=== PATIENT | female | born 1980 | race Two or more races ===

== ENCOUNTER → 2018-06-20 | Outpatient (CLI) | payer OTHER ==
--- NOTE | 2018-06-21 07:03 | MM ---
Reason for exam: screening (asymptomatic). Baseline mammogram. History: Family history of breast cancer in maternal grandmother. Physical Findings: Nurse did not find any significant physical abnormalities on exam. MG Screening Mammo w CAD Bilateral CC and MLO view(s) were taken. The breast tissue is heterogeneously dense. This may lower the sensitivity of mammography. No suspicious abnormality. These results were verbally communicated with the patient and result sheet given to the patient on 06/20/18. ASSESSMENT: Negative, BI-RAD 1 RECOMMENDATION: Routine screening mammogram of both breasts in 1 year.
== END | disposition home or self-care (01) ==
LOC: RADMAMWWP 15:12
PROVIDERS: ATTEND Family Medicine
DX: Z12.31 Encounter for screening mammogram for malignant neoplasm of breast (principal); N64.89 Other specified disorders of breast; Z80.3 Family history of malignant neoplasm of breast
CPT/HCPCS: 77067

== ENCOUNTER → 2018-06-30 | Outpatient (CLI) | payer OTHER ==
--- NOTE | 2018-06-30 12:51 | US ---
EXAMINATION TYPE: US thyroid st tissue head/neck DATE OF EXAM: 06/30/2018 COMPARISON: NONE CLINICAL HISTORY: E03.9 Hypothyroidism. Persistent cough, neck swelling, on thyroid meds GLAND SIZE: Right Lobe: 4.4 x 1.3 x 1.6 cm Overall Parenchyma: homogenous Left Lobe: 4.2 x 1.3 x 1.3 cm Overall Parenchyma: homogeneous Isthmus Thickness: 0.2 cm NODULES RIGHT: # of nodules measured on right: 0 LEFT: # of nodules measured on left: 0 ISTHMUS: # of nodules measured in the isthmus: 0 Bilateral neck scanned, no evidence of lymphadenopathy. IMPRESSION: No distinct abnormality appreciated.
== END | disposition home or self-care (01) ==
LOC: RADUSWWP 12:17
PROVIDERS: ATTEND Family Medicine
DX: E03.9 Hypothyroidism, unspecified (principal)
CPT/HCPCS: 76536

== ENCOUNTER 2022-08-31 06:50 | Inpatient (IN) | payer BC, OTHER ==
[2022-08-31] MEDS ORDERED: ASPIRIN 81 MG PO STA (07:17)
[2022-08-31] MEDS ORDERED: SODIUM CHLORIDE 0.9% 500 ML 500 ML IV STA (07:17)
[2022-08-31] MEDS ORDERED: SODIUM CHLORIDE 0.9% 1,000 ML IV STA (07:17)
[2022-08-31] MEDS ORDERED: KETOROLAC 15 MG/ML 1 ML VIAL IVP STA (07:18)
[2022-08-31 08:07] LABS: Basophils % (A) 0 %; Eosinophils # (A) 0.1 k/uL (0-0.7); Eosinophils % (A) 1 %; HCT 40.8 % (34.0-46.0); HGB 13.9 gm/dL (11.4-16.0); Lymphocytes # (A) 0.4 k/uL (1.0-4.8); Lymphocytes % (A) 6 %; MCH 28.6 pg (25.0-35.0); MCHC 34.1 g/dL (31.0-37.0); Mean Platelet Volume 6.7; Monocytes # (A) 0.3 k/uL (0-1.0); Monocytes % (A) 5 %; Neutrophils # (A) 5.5 k/uL (1.3-7.7); Neutrophils % (A) 87 %; Platelet Count 285 k/uL (150-450); RBC 4.86 m/uL (3.80-5.40); RDW 13.4 % (11.5-15.5); WBC 6.3 k/uL (3.8-10.6)
[2022-08-31 08:16] LABS: ALT 18 U/L (4-34); AST 25 U/L (14-36); African American GFR (CKD) >90 (>60 ml/min/1.73 sqM); Albumin 4.3 g/dL (3.5-5.0); Alkaline Phosphatase 50 U/L (38-126); Anion Gap 6 mmol/L; Blood Urea Nitrogen 14 mg/dL (7-17); Calcium 8.8 mg/dL (8.4-10.2); Carbon Dioxide 26 mmol/L (22-30); Chloride 105 mmol/L (98-107); Glucose 108 mg/dL (74-99); Lipase 50 U/L (23-300); Magnesium 1.5 mg/dL (1.6-2.3); Non-African American GFR(CKD) >90 (>60 ml/min/1.73 sqM); Potassium 3.8 mmol/L (3.5-5.1); Sodium 137 mmol/L (137-145); Total Bilirubin 0.6 mg/dL (0.2-1.3); Total Protein 7.2 g/dL (6.3-8.2)
[2022-08-31 08:33] LABS: Partial Thromboplastin Time 25.6 sec (22.0-30.0); Prothrombin Time 10.5 sec (9.0-12.0)
--- NOTE | 2022-08-31 08:33 | XR ---
EXAMINATION TYPE: XR chest 2V DATE OF EXAM: 08/31/2022 8:29 AM COMPARISON: None TECHNIQUE: XR chest 2V Frontal and lateral views of the chest. CLINICAL INDICATION:Female, 42 years old with history of Chest Pain; FINDINGS: Lungs/Pleura: There is no evidence of pleural effusion, focal consolidation, or pneumothorax. Pulmonary vascularity: Unremarkable. Heart/mediastinum: Cardiomediastinal silhouette is unremarkable. Musculoskeletal: No acute osseous pathology. IMPRESSION: No acute cardiopulmonary disease/process.
--- NOTE | 2022-08-31 08:59 | ED ---
Chest Pain HPI - General Chief Complaint: Chest Pain Stated Complaint: chest pain Time Seen by Provider: 08/31/22 06:57 Source: patient, EMS, RN notes reviewed Mode of arrival: EMS Limitations: no limitations - History of Present Illness Initial Comments: This a 42-year-old female presents emergency department via EMS chief complaint of cough and cold-like symptoms, chest pain. Patient states she is currently staying in a hotel as she did not want to her family member sick she was exposed to influenza. Patient states when she developed chest pain several hours prior arrival. Patient states that her stated deep breath states is sharp central chest pain when she pressed over her chest and her. Patient denies any abdominal complaints states that she does have cough, congested and reported fever. Patient has no severe past medical history including hypertension, hyperlipidemia, diabetes no prior cardiac disease no prior lung disease. Denies numbness smoker - Related Data Allergies Allergy/AdvReac Type Severity Reaction Status Date / Time No Known Allergies Allergy Verified 08/31/22 07:03 Review of Systems ROS Statement: Those systems with pertinent positive or pertinent negative responses have been documented in the HPI. ROS Other: All systems not noted in ROS Statement are negative. EKG Findings - EKG Comments: EKG Findings:: EKG performed at 7:29 sinus rhythm rate of 92 CT 141/86 QT/QTC 342/393 - EKG Results: EKG: interpreted by KELLY Past Medical History Past Medical History: No Reported History History of Any Multi-Drug Resistant Organisms: None Reported Past Surgical History: Section, Tubal Ligation, Uterine Ablation Past Psychological History: No Psychological Hx Reported Smoking Status: Former smoker Past Alcohol Use History: Rare Past Drug Use History: None Reported General Exam Limitations: no limitations General appearance: alert, in no apparent distress Head exam: Present: atraumatic, normocephalic, normal inspection Eye exam: Present: normal appearance, PERRL, EOMI. Absent: scleral icterus, conjunctival injection, periorbital swelling ENT exam: Present: normal exam, normal oropharynx, mucous membranes moist Neck exam: Present: normal inspection, full ROM. Absent: tenderness, meningismus, lymphadenopathy Respiratory exam: Present: normal lung sounds bilaterally, chest wall tenderness. Absent: respiratory distress, wheezes, rales, rhonchi, stridor Cardiovascular Exam: Present: regular rate, normal rhythm, normal heart sounds. Absent: systolic murmur, diastolic murmur, rubs, gallop, clicks GI/Abdominal exam: Present: soft, normal bowel sounds. Absent: distended, tenderness, guarding, rebound, rigid Course Vital Signs 08/31/22 08/31/22 08/31/22 07:03 07:36 08:00 Temperature 98.6 F Pulse Rate 88 96 93 Respiratory 15 16 21 Rate Blood Pressure 98/71 94/71 94/61 O2 Sat by Pulse 100 100 100 Oximetry 08/31/22 08/31/22 08/31/22 08:30 09:00 09:30 Temperature Pulse Rate 74 65 80 Respiratory 18 19 18 Rate Blood Pressure 96/58 84/58 85/55 O2 Sat by Pulse 99 100 100 Oximetry 08/31/22 09:38 Temperature Pulse Rate 79 Respiratory 18 Rate Blood Pressure 87/54 O2 Sat by Pulse 99 Oximetry Chest Pain MDM - MDM Was pt. sent in by a medical professional or institution (, PA, BRINE PROCESS OPERATOR, urgent care, hospital, or half-way...) When possible be specific @ -[No] Did you speak to anyone other than the patient for history (EMS, parent, family, police, friend...)? What history was obtained from this source @ -[EMS provided prehospital care, treatment medications. Did you review nursing and triage notes (agree or disagree)? Why? @ -[I reviewed and agree with nursing and triage notes] Were old charts reviewed (outside hosp., previous admission, EMS record, old EKG, old radiological studies, urgent care reports/EKG's, half-way records)? Report findings @ -[No old charts were reviewed] Differential Diagnosis (chest pain, altered mental status, abdominal pain women, abdominal pain men, vaginal bleeding, weakness, fever, dyspnea, syncope, headache, dizziness, GI bleed, back pain, seizure, CVA, palpatations, mental health)? @ -[Chest pain atypical chest pain, chest wall pain, influenza,: 19, pneumonia, pneumothorax, PE, this list is not all inclusive.] EKG interpreted by me (3pts min.). @ -[As above] X-rays interpreted by me (1pt min.). @ -[Chest x-ray shows no acute process.] CT interpreted by me (1pt min.). @ -[CT chest PE study shows no evidence of PE, there is a noted nodule] U/S interpreted by me (1pt. min.). @ -[None done] What testing was considered but not performed or refused? (CT, X-rays, U/S, labs)? Why? @ -[None] What meds were considered but not given or refused? Why? @ -[None] Did you discuss the management of the patient with other professionals (professionals i.e. , PA, BRINE PROCESS OPERATOR, lab, RT, psych nurse, social worker clinical, assistant golf coach, teacher, medical officer, rn case management)? Give summary @ -[Admitting hospitalist with consult cardiology, echocardiogram] Was smoking cessation discussed for >3mins.? @ -[No] Was critical care preformed (if so, how long)? @ -[No] Were there social determinants of health that impacted care today? How? (Homelessness, low income, unemployed, alcoholism, drug addiction, transportation, low edu. Level, literacy, decrease access to med. care, correction, rehab)? @ -[No] Was there de-escalation of care discussed even if they declined (Discuss DNR or withdrawal of care, Hospice)? DNR status @ -[No] What co-morbidities impacted this encounter? (DM, HTN, Smoking, COPD, CAD, Cancer, CVA, ARF, Chemo, Hep., AIDS, mental health diagnosis, sleep apnea, morbid obesity)? @ -[None] Was patient admitted / discharged? Hospital course, mention meds given and route, prescriptions, significant lab abnormalities, going to OR and other pertinent info. @ -[hospital course] Undiagnosed new problem with uncertain prognosis? @ -[No] Drug Therapy requiring intensive monitoring for toxicity (Heparin, Nitro, Insulin, Cardizem)? @ -[No] Were any procedures done? @ -[No] Diagnosis/symptom? @ -[Chest pain] Acute, or Chronic, or Acute on Chronic? @ -[Acute] Uncomplicated (without systemic symptoms) or Complicated (systemic symptoms)? @ -[Uncomplicated] Side effects of treatment? @ -[No] Exacerbation, Progression, or Severe Exacerbation? @ -[No] Poses a threat to life or bodily function? How? (Chest pain, [place], [place], pneumonia, PE, COPD, DKA, ARF, appy, cholecystitis, CVA, Diverticulitis, Homicidal, Suicidal, threat to staff... and all critical care pts) @ -[Chest pain, patient has risk of cardiac arrest.] Disposition Clinical Impression: Chest pain Disposition: ADMITTED IP TO THIS HOSP Condition: Fair Referrals: Azar Kenyon DO [Primary Care Provider] - 1-2 days Time of Disposition: 09:55
--- NOTE | 2022-08-31 09:30 | CT ---
EXAMINATION TYPE: CT chest angio for PE CT DLP: 258.5 mGycm, Automated exposure control for dose reduction was used. DATE OF EXAM: 08/31/2022 9:21 AM COMPARISON: Chest radiograph from same day. CLINICAL INDICATION:Female, 42 years old with history of pain, sob; Pain, SOB, PE TECHNIQUE/CONTRAST: CTA scan of the thorax is performed without and with IV Contrast, patient injected with 100 ml mL of Isovue 370, pulmonary embolism protocol. MIP images are created and reviewed. FINDINGS: Pulmonary Artery: There is no evidence for a filling defect within the pulmonary vasculature to sugge st acute pulmonary embolism. The pulmonary artery is of normal size. Lungs/Pleura: No evidence of focal consolidation, pleural effusion or pneumothorax. Minimal bilateral posterior lower lobe subsegmental atelectasis. Airway: Large airways are patent. Heart: Heart is within normal limits for size.. Vasculature: No evidence of aortic aneurysm. Mediastinum: No gross evidence of adenopathy. Left paraesophageal 1.8 x 1.5 cm round lesion (series 1 01, image 36). Musculoskeletal: No acute osseous abnormalities Soft Tissues: Unremarkable. Lower neck: No significant findings. Upper Abdomen: No significant findings. IMPRESSION: 1. No evidence of pulmonary embolism or acute thoracic process. 2. Left paraesophageal 1.8 cm round lesion. 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 C onsider follow-up examination in 6 months to assess for stability.
[2022-08-31] MEDS ORDERED: SODIUM CHLORIDE 0.9% 1,000 ML IV ONE ×2 (09:49→11:53)
[2022-08-31] MEDS ORDERED: MAGNESIUM OXIDE 400 MG TAB PO STA (09:59)
[2022-08-31 11:51] LABS: Glucose,Whole Blood 84 mg/dL (70-110)
--- NOTE | 2022-08-31 11:56 | P.HPIM ---
History of Present Illness This is a pleasant 42 years old female with no significant past medical history Presents because of chest pain this morning was about 10/10, central going to the back, currently improved 2/10, felt like dull pain. associated with all numbness feeling clammy Patient denies coughing or dyspnea No vomiting diarrhea or recent abdominal pain however patient was complaining of from lower abdominal pain and tenderness since last May. She feels very fatigued, her legs are restless. She denies any urinary symptoms like dysuria urgency or change in frequency, she feels dizzy and lightheadedness but no headache weakness or numbness. She feels generally weak. She denies smoking alcohol and illicit drugs Usually her systolic blood pressure is around 100, currently 85-90. Patient says that last May she has History of removal of fallopian tubes for sterilization purposes. Ovaries and part of the transverse left. Vitals are stable. Blood pressure on the low side, 85/55 and 88/56 Patient has unremarkable CBC, INR, BMP and liver enzymes. Troponin is negative. elevated 0.92. Magnesium level I.5. Influenza and covid virsus are undetected EKG showing normal sinus rhythm at [address]-T changes CTA of the chest: No PE, left paraesophageal digital 1.8 cm round lesion. The presents of benign a process such as a duplication cyst. Consider follow-up exam in 6 months to assess She was started on aspirin Review of Systems Review of systems CONSTITUTIONAL: No fever, no hot flashes HEENT: No recent visual problems or hearing problems. Denied any sore throat. CARDIOVASCULAR: No orthopnea, PND, no palpitations, no syncope. PULMONARY: No shortness of breath, no cough, no hemoptysis. GASTROINTESTINAL: No diarrhea, no nausea, no vomiting. Normoactive bowel sounds. NEUROLOGICAL: No headaches, no weakness, no numbness. HEMATOLOGICAL: Denies any bleeding or petechiae. GENITOURINARY: Denies any burning micturition, frequency, or urgency. MUSCULOSKELETAL/RHEUMATOLOGICAL: Denies any joint pain, swelling, or any muscle pain. ENDOCRINE: Denies any polyuria or polydipsia. Past Medical History Past Medical History: No Reported History History of Any Multi-Drug Resistant Organisms: None Reported Past Surgical History: Section, Tubal Ligation, Uterine Ablation Past Psychological History: No Psychological Hx Reported Smoking Status: Former smoker Past Alcohol Use History: Rare Past Drug Use History: None Reported Medications and Allergies Home Medications Medication Instructions Recorded Confirmed Type ALPRAZolam [Xanax] 0.25 mg PO DIRECTED PRN 08/31/22 08/31/22 History Oxybutynin Xl [Ditropan XL] 10 mg PO DAILY 08/31/22 08/31/22 History methocarbamoL [Robaxin] 500 mg PO BID PRN 08/31/22 08/31/22 History Allergies Allergy/AdvReac Type Severity Reaction Status Date / Time No Known Allergies Allergy Verified 08/31/22 10:21 Physical Exam Vitals: Vital Signs Temp Pulse Resp BP Pulse Ox 08/31/22 11:13 67 15 88/56 99 08/31/22 09:38 79 18 87/54 99 08/31/22 09:30 80 18 85/55 100 08/31/22 09:00 65 19 84/58 100 08/31/22 08:30 74 18 96/58 99 08/31/22 08:00 93 21 94/61 100 08/31/22 07:36 96 16 94/71 100 08/31/22 07:03 98.6 F 88 15 98/71 100 Intake and Output 08/30/22 08/31/22 08/31/22 22:59 06:59 14:59 Other: Weight 63.503 kg -GENERAL: The patient is alert and oriented x3, not in any acute distress. Well developed, well nourished. Generally weak with malaise HEENT: Pupils are round and equally reacting to light. EOMI. No scleral icterus. No conjunctival pallor. Normocephalic, atraumatic. No pharyngeal erythema. No thyromegaly. CARDIOVASCULAR: S1 and S2 present. No murmurs, rubs, or gallops. PULMONARY: Chest is clear to auscultation, no wheezing or crackles. -ABDOMEN: Soft, suprapubic tenderness, nondistended, normoactive bowel sounds. No palpable organomegaly. MUSCULOSKELETAL: No joint swelling or deformity. EXTREMITIES: No cyanosis, clubbing, or pedal edema. NEUROLOGICAL: Gross neurological examination did not reveal any focal deficits. SKIN: No rashes. no petechiae. Results CBC & Chem 7: 08/31/22 07:46 08/31/22 07:46 Labs: Abnormal Lab Results - Last 24 Hours (Table) 08/31/22 08/31/22 08/31/22 Range/Units 07:46 07:46 07:46 Lymphocytes # 0.4 L (1.0-4.8) k/uL D-Dimer 0.92 H (<0.60) mg/L FEU Glucose 108 H (74-99) mg/dL Magnesium 1.5 L (1.6-2.3) mg/dL Assessment and Plan Assessment: Chest pain, rule out cardiac causes, CTA was negative for PE Hypotension Suprapubic pain and tenderness, chronic as per patient left paraesophageal digital 1.8 cm round lesion recommended by radiologist to reassess in 6 months History of removal of fallopian tubes Plan: Continue with aspirin Serial troponin Echocardiogram Cardiology consult give normal saline bolus 1 and continue with IV fluid Monitor hemoglobin and vitals Check urinalysis and bladder scan Surgical team consult for abdominal pain Labs and medication were reviewed.. Continue same treatment. Continue with symptomatic treatment. Resume home medication. Monitor labs and vitals. DVT and GI prophylaxis. Further recommendations as per clinical course of the patient DVT prophylaxis: Subcutaneous heparin GI Prophylaxis: Pepcid PT/OT: Pending Prognosis is guarded
[2022-08-31 13:03] LABS: Appearance,Urine Clear (Clear); Bilirubin,Urine Negative (Negative); Blood,Urine Trace (Negative); Color,Urine Yellow; Glucose,Urine (UA) Negative (Negative); Ketones,Urine 2+ (Negative); Leukocyte Esterase,Urine Negative (Negative); Mucus,Urine Rare /hpf; Nitrite,Urine Negative (Negative); Protein,Urine Trace (Negative); RBC,Urine 1 /hpf (0-5); Squamous Epithelial Cell,Urine 2 /hpf (0-4); Urobilinogen,Urine <2.0 mg/dL (<2.0); WBC,Urine 1 /hpf (0-5)
[2022-08-31 13:16] LABS: Specific Gravity,Urine >1.050 (1.001-1.035)
[2022-08-31] MEDS ORDERED: HYDROcodone/APAP 5-325MG 1 EACH TAB PO PRN (13:40)
[2022-08-31] MEDS: SODIUM CHLORIDE 0.9% 1,000 ML IV SCH ×2 (13:42→20:45)
[2022-08-31] MEDS ORDERED: IOPAMIDOL CONTRAST (ORAL USE) VIAL PO PRN (14:51)
--- NOTE | 2022-08-31 15:28 | P.GSCN ---
History of Present Illness Consult date: 08/31/22 History of present illness: CHIEF COMPLAINT: Chest pain Reason for consult lower abdominal pain HISTORY OF PRESENT ILLNESS: This is a 42-year-old female with a past medical history of chronic abdominal pain for the last 6 months. She she complains of lower abdominal pain in the center, suprapubic area at the left lower quadrant. Patient reports that she's been having nausea vomiting and diarrhea. No blood noted in the stools. She had surgery in May with a Dr. Prince Michael who is a landing gear mechanic. At that time she had a fallopian tubes removed and had lysis of adhesions. Patient reports that there were adhesions noted on her bladder as well. Patient has had past surgical history of and tubal ligation. Patient presented to the hospital due to complaints of chest pain that started at 5 AM that radiated up into her shoulder with bilateral arm numbness. She had a CTA which was negative for PE and troponins are negative and EKG is normal sinus rhythm. Cardiology has been consulted. Surgical service consulted in regards to her lower abdominal pain. Patient denies any cardiac history. She has been having urinary frequency and is on Ditropan for overactive bladder. She denies any burning with urination. Patient has been hypotensive and has received IV fluid boluses. PAST MEDICAL HISTORY: See list. PAST SURGICAL HISTORY: See list. MEDICATIONS: See list. ALLERGIES: See list. SOCIAL HISTORY: No illicit drug use. REVIEW OF SYSTEMS: CONSTITUTIONAL: Denies fever or chills. HEENT: Denies blurred vision, vision changes, or eye pain. Denies hemoptysis ENDOCRINE: Denies heat or cold intolerance. CARDIOVASCULAR: Denies chest pain or pressure. RESPIRATORY: No shortness of breath. GASTROINTESTINAL: Please refer to HPI NEURO: Denies history of seizures. PSYCH: No depression or suicidal ideation HEMATOLOGIC: Denies bleeding disorders. LYMPHATIC: The patient denies any lumps and bumps around the neck. GENITOURINARY: Denies any blood in urine or increased urinary frequency. MUSCULOSKELETAL: Denies myalgias. Denies joint swelling. Denies decreased range of motion beyond patients baseline. SKIN: Denies pruitis. Denies rash. PHYSICAL EXAM: VITAL SIGNS: Reviewed GENERAL: Well-developed in no acute distress. HEENT: No sclera icterus. Extraocular movements grossly intact. Moist buccal mucosa. Head is atraumatic, normocephalic. Hears conversational speech. No nasal drainage. NECK: Supple without lymphadenopathy. CHEST: Non-labored respirations and equal bilateral excursions. CARDIOVASCULAR: Palpable 2+ radial pulses. ABDOMEN: Soft. Nondistended. Tenderness to palpation of the lower mid a bdomen, suprapubic area and left lower abdomen MUSCULOSKELETAL: No clubbing or cyanosis. NEUROLOGIC: No focal or lateralizing signs. Cranial nerves II through XII grossly intact. PSYCH: Appropriate affect. Alert and oriented to person, place and time. SKIN: Well perfused. Good skin turgor. LABORATORY DATA: WBC 6.3 Hgb 13.9 platelets 285 INR 1.0 d-dimer 0.92 Sodium 137 potassium 3.8 creatinine 0.69 Magnesium 1.5 troponin negative 2 lipase 50 LFTs normal Urine hCG not detected Influenza, RSV and COVID-19 not detected IMAGING: Chest CTA no evidence of pulmonary embolism or acute thoracic process. Left paraesophageal 1.8 cm round lesion. Represents a benign process such as a cyst. Consider follow-up examination in 6 months to assess stability. ASSESSMENT: 1. Abdominal pain lower mid abdomen, suprapubic area and left lower quadrant 2. Nausea, vomiting and diarrhea 3. Chest pain 4. Left paraesophageal 1.8 cm round lesion. Possible benign cyst on computed tomography scan 5. History of salpingectomy and lysis of adhesions in May with [facility] 6. Hypotensive 7. Hypomagnesemia did receive supplement PLAN: -Computed tomography scan abdomen and pelvis with oral contrast ordered for further evaluation of abdominal pain -Continue IV fluid hydration -Continue supportive -Cardiac workup in progress for chest pain -Further recommendations forthcoming per surgeon Physician Director [employer] note has been reviewed by physician. Signing provider agrees with the documented findings, assessment, and plan of care. REASON FOR CONSULTATION: Atypical chest pain HISTORY OF PRESENT ILLNESS: The patient is a 42 year old female who comes was admitted with atypical chest pain radiating to her back. She reports her pain happened the last 4 hours. Patient reports being exposed to sick contacts including children who had a stomach flu. She reports feeling numbness and tingling throughout her body prior to admission. She felt weak. She presented to the emergency room. Due to her chest pain, cardiac including pulmonary workup was performed. General surgery was consulted due to her atypical chest pain. Patient denies active nausea and vomiting. She denies diffuse abdominal pain. PAST MEDICAL HISTORY: See list and reviewed PAST SURGICAL HISTORY: See list and reviewed MEDICATIONS: See list and reviewed ALLERGIES: See list and reviewed SOCIAL HISTORY: See list and reviewed FAMILY HISTORY: See list and reviewed REVIEW OF ORGAN SYSTEMS: CONSTITUTIONAL: No fevers or chills. No recent weight loss. EYES: Denies any trouble with vision. No glasses. HEENT: No difficulties with hearing. No nosebleeds. No difficulty swallowing. RESPIRATORY: Denies pneumonia. Denies any troubles with breathing or dyspnea on exertion. CARDIOVASCULAR: Denies any chest pain, palpitations, or recent heart attacks. GASTROINTESTINAL: Denies fatty food intolerance. Denies change in bowel habits and gas bloat. GENITOURINARY: Denies any blood in urine or increased urinary frequency. NEUROLOGICAL: Denies any numbness or tingling along the distal extremities. No seizure disorders or headaches. MUSCULOSKELETAL: Denies any back pain, stiffness or joint arthritis. SKIN: No current skin cancer. No rash. Prior abdominoplasty. PSYCHIATRIC: Denies current depression or suicidal thoughts. Has anxiety. ENDOCRINE: Denies current thyroid disorders. Denies any blood sugar glucose intolerance. HEME/LYMPHATIC: Denies any lumps and bumps around the neck. No recent deep venous thrombosis. ALLERGY/IMMUNOLOGY: No immunoglobulin therapy. No immune deficiencies. BREAST: Denies current breast lumps, pain or nipple discharge. PHYSICAL EXAM: VITALS: Reviewed CONSTITUTIONAL: Well developed and in no acute distress. EYES: Conjuctivae without sclera icterus. Extraocular movements grossly intact. HEAD, EARS, NOSE, THROAT: Moist buccal mucosa. Head is atraumatic, normocephalic. Hears conversational speech. No nasal drainage. NECK: Supple. No JV distention. No thyroidomegaly. RESPIRATORY: Non-labored respirations and equal bilateral excursions. No gross wheezes. CARDIOVASCULAR: Palpable 2+ radial pulses. ABDOMEN: Focal tenderness epigastrium. No peritonitis. LYMPH: No neck lymphadenopathy. MUSCULOSKELETAL: Nail and fingers with good capillary refill. SKIN: Warm and well perfused with good skin turgor. NEUROLOGIC: Cranial nerves II through XII grossly intact. No focal or lateralizing signs. PSYCH: Appropriate affect. Alert and oriented to person, place and time. Displays appropriate insight. CLINCAL LABS: Reviewed. WBC normal. Hemoglobin normal. Magnesium low 1.5. 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 of the abdomen and pelvis report demonstrates arthritis. No bowel obstruction. EKG: Demonstrates normal sinus ASSESSMENT: 1. Atypical chest pain 2. Enteritis 3. 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 IV fluid hydration. 2. No acute surgical intervention 3. Recommend upper endoscopy due to atypical chest pain Thank you for this kind consultation. Past Medical History Past Medical History: No Reported History History of Any Multi-Drug Resistant Organisms: None Reported Past Surgical History: Section, Tubal Ligation, Uterine Ablation Past Psychological History: No Psychological Hx Reported Smoking Status: Former smoker Past Alcohol Use History: Rare Past Drug Use History: None Reported Medications and Allergies Home Medications Medication Instructions Recorded Confirmed Type ALPRAZolam [Xanax] 0.25 mg PO DIRECTED PRN 08/31/22 08/31/22 History Oxybutynin Xl [Ditropan XL] 10 mg PO DAILY 08/31/22 08/31/22 History methocarbamoL [Robaxin] 500 mg PO BID PRN 08/31/22 08/31/22 History Allergies Allergy/AdvReac Type Severity Reaction Status Date / Time No Known Allergies Allergy Verified 08/31/22 10:21 Surgical - Exam Vital Signs Temp Pulse Resp BP Pulse Ox 98.6 F 88 15 98/71 100 08/31/22 07:03 08/31/22 07:03 08/31/22 07:03 08/31/22 07:03 08/31/22 07:03 Results - Labs 08/31/22 07:46 08/31/22 07:46 Abnormal Lab Results - Last 24 Hours (Table) 08/31/22 08/31/22 08/31/22 Range/Units 07:46 07:46 07:46 Lymphocytes # 0.4 L (1.0-4.8) k/uL D-Dimer 0.92 H (<0.60) mg/L FEU Glucose 108 H (74-99) mg/dL Magnesium 1.5 L (1.6-2.3) mg/dL Ur Specific [place] (1.001-1.035) Urine Protein (Negative) Urine Ketones (Negative) Urine Blood (Negative) Urine Mucus (None) /hpf 08/31/22 Range/Units 11:56 Lymphocytes # (1.0-4.8) k/uL D-Dimer (<0.60) mg/L FEU Glucose (74-99) mg/dL Magnesium (1.6-2.3) mg/dL Ur Specific [place] >1.050 H (1.001-1.035) Urine Protein Trace H (Negative) Urine Ketones 2+ H (Negative) Urine Blood Trace H (Negative) Urine Mucus Rare H (None) /hpf Diabetes panel 08/31/22 Range/Units 07:46 Sodium 137 (137-145) mmol/L Potassium 3.8 (3.5-5.1) mmol/L Chloride 105 (98-107) mmol/L Carbon Dioxide 26 (22-30) mmol/L BUN 14 (7-17) mg/dL Creatinine 0.69 (0.52-1.04) mg/dL Glucose 108 H (74-99) mg/dL Calcium 8.8 (8.4-10.2) mg/dL AST 25 (14-36) U/L ALT 18 (4-34) U/L Alkaline Phosphatase 50 (38-126) U/L Total Protein 7.2 (6.3-8.2) g/dL Albumin 4.3 (3.5-5.0) g/dL Calcium panel 08/31/22 Range/Units 07:46 Calcium 8.8 (8.4-10.2) mg/dL Albumin 4.3 (3.5-5.0) g/dL Pituitary panel 08/31/22 Range/Units 07:46 Sodium 137 (137-145) mmol/L Potassium 3.8 (3.5-5.1) mmol/L Chloride 105 (98-107) mmol/L Carbon Dioxide 26 (22-30) mmol/L BUN 14 (7-17) mg/dL Creatinine 0.69 (0.52-1.04) mg/dL Glucose 108 H (74-99) mg/dL Calcium 8.8 (8.4-10.2) mg/dL Adrenal panel 08/31/22 Range/Units 07:46 Sodium 137 (137-145) mmol/L Potassium 3.8 (3.5-5.1) mmol/L Chloride 105 (98-107) mmol/L Carbon Dioxide 26 (22-30) mmol/L BUN 14 (7-17) mg/dL Creatinine 0.69 (0.52-1.04) mg/dL Glucose 108 H (74-99) mg/dL Calcium 8.8 (8.4-10.2) mg/dL Total Bilirubin 0.6 (0.2-1.3) mg/dL AST 25 (14-36) U/L ALT 18 (4-34) U/L Alkaline Phosphatase 50 (38-126) U/L Total Protein 7.2 (6.3-8.2) g/dL Albumin 4.3 (3.5-5.0) g/dL
--- NOTE | 2022-08-31 17:38 | CT ---
EXAMINATION TYPE: CT abdomen pelvis wo con DATE OF EXAM: 08/31/2022 COMPARISON: none HISTORY: abd pain CT DLP: 501.8 mGycm Examination of the solid and hollow viscera is limited given the lack of contrast. FINDINGS: LUNG BASES: No evidence for nodule. No evidence for infiltrate. LIVER/GB: The gallbladder is unremarkable. No space-occupying hepatic lesion. Gallbladder sludge note d. PANCREAS: No pancreatic mass identified. No inflammatory process seen. SPLEEN: No evidence for splenomegaly. No intrasplenic lesions seen. ADRENALS: No adrenal nodules identified. No evidence for thickening. KIDNEYS: No evidence for renal mass. No nephrolithiasis. No hydronephrosis. BOWEL: Appendix has a normal appearance. No evidence of bowel obstruction. Small bowel wall thickenin g may reflect enteritis. Lymph nodes: No evidence for adenopathy greater than 1 cm. Abdominal aorta: Atheromatous changes seen. No evidence for aneurysm. Genital organs: No significant abnormality. Other: No significant abnormality. IMPRESSION: Small bowel wall thickening may reflect enteritis.
[2022-08-31] MEDS: PANTOPRAZOLE 40 MG/10 ML VIAL IVP SCH (20:45)
[2022-08-31] MEDS ORDERED: ACETAMINOPHEN TAB 325 MG TAB PO PRN (22:46)
[2022-08-31] MEDS: AMOXIC-POT CLAV 875-125MG 1 EACH TAB PO SCH (23:06)
[2022-09-01 02:48] VITALS: RESP 18
[2022-09-01] MEDS: SODIUM CHLORIDE 0.9% 1,000 ML IV SCH ×2 (06:01→09:08)
[2022-09-01] MEDS ORDERED: SODIUM CHLORIDE 0.9% 1,000 ML IV ONE (06:47)
[2022-09-01] MEDS ORDERED: HEPARIN SODIUM,PORCINE/PF 5,000 UNIT/0.5 ML SYRINGE SQ SCH (09:00)
[2022-09-01] MEDS ORDERED: ASPIRIN 325 MG TAB PO SCH (09:00)
[2022-09-01] MEDS: PANTOPRAZOLE 40 MG/10 ML VIAL IVP SCH (09:07)
[2022-09-01] MEDS: AMOXIC-POT CLAV 875-125MG 1 EACH TAB PO SCH (09:07)
[2022-09-01 09:32] VITALS: BP 101/70; TEMP 98.7
[2022-09-01] MEDS ORDERED: MAG HYDROX/AL HYDROX/SIMETH 30 ML, HYOSCYAMINE ELIXIR 10 ML, LIDOCAINE VISCOUS 2% 10 ML PO ONE ×3 (10:56)
--- NOTE | 2022-09-01 11:09 | CA ---
Transthoracic Echo Report Name: Verena Lemus Age: 42 Gender: F : 1980 Exam Date: 09/01/2022 07:32 Exam Location: [facility] Ht (in): 64 Wt (lb): 140 Ordering Physician: Toño Skinner Attending/Referring Phys: [id number], Susanne [employer] Assistant Susan Robertson RDCS Procedure CPT: Indications: Chest Pain Cardiac Hx: Technical Quality: Fair Contrast 1: Total Dose (mL): Contrast 2: Total Dose (mL): MEASUREMENTS (Male / Female) Normal Values 2D ECHO LV Diastolic Diameter PLAX 4.8 cm 4.2 - 5.9 / 3.9 - 5.3 cm LV Systolic Diameter PLAX 3.5 cm IVS Diastolic Thickness 0.9 cm 0.6 - 1.0 / 0.6 - 0.9 cm LVPW Diastolic Thickness 0.8 cm 0.6 - 1.0 / 0.6 - 0.9 cm LV Relative Wall Thickness 0.4 RV Internal Dim ED PLAX 2.5 cm LV Diastolic Volume MOD 4C 73.8 cm??? LV Systolic Volume MOD 4C 34.7 cm??? LV Ejection Fraction MOD 4C 53.0 % LV Diastolic Length 4C 7.4 cm LV Systolic Length 4C 6.0 cm M-MODE Aortic Root Diameter MM 2.3 cm LA Systolic Diameter MM 3.8 cm LA Ao Ratio MM 1.6 AV Cusp Separation MM 1.7 cm DOPPLER AV Peak Velocity 140.5 cm/s AV Peak Gradient 7.9 mmHg LVOT Peak Velocity 104.5 cm/s LVOT Peak Gradient 4.4 mmHg MV Area PHT 4.9 cm??? MR Peak Velocity 377.1 cm/s MR Peak Gradient 56.9 mmHg Mitral E Point Velocity 86.9 cm/s Mitral A Point Velocity 55.7 cm/s Mitral E to A Ratio 1.6 MV Deceleration Time 156.0 ms TR Peak Velocity 203.6 cm/s TR Peak Gradient 16.6 mmHg Right Atrial Pressure 3.0 mmHg Pulmonary Artery Systolic Pressu 19.6 mmHg Right Ventricular Systolic Press 19.6 mmHg PV Peak Velocity 76.4 cm/s PV Peak Gradient 2.3 mmHg FINDINGS Left Ventricle Left ventricular ejection fraction is estimated at 50-55 %. Right Ventricle Normal right ventricular size and function. Right ventricular systolic pressure within normal limits. Right Atrium Normal right atrial size. Left Atrium Normal left atrial size. Mitral Valve Mild mitral regurgitation. Aortic Valve Trileaflet aortic valve. No aortic regurgitation. No aortic stenosis. Tricuspid Valve Mild tricuspid regurgitation. Pulmonic Valve Trace pulmonic regurgitation. Pericardium No pericardial or pleural effusion. Aorta Normal size aortic root and proximal ascending aorta. CONCLUSIONS Normal left ventricular dimension and systolic function No significant valvular abnormalities Previewed by: Dr. Baldo Santiago MD (Electronically Signed) Final Date: 01 September 2022 11:09
--- NOTE | 2022-09-01 11:32 | P.PN ---
Subjective Progress Note Date: 09/01/22 CHIEF COMPLAINT: Chest pain HISTORY OF PRESENT ILLNESS: Patient is report some chest tightness earlier this morning. She states that her lower abdominal pain is about the same. It's the same pain that she's dealt with for the last 6 months. She denies any further nausea or vomiting. She's had no further diarrhea. Computed tomography scan abdomen and pelvis had shown small bowel wall thickening which may reflect enteritis. She did have sick grandchildren at home with nausea vomiting and diarrhea. Patient initially scheduled for EGD today for further evaluation of atypical chest pain. Patient has declined EGD. Echo shows normal left ventricle dimensions and systolic function. No significant valvular abnormalities. PHYSICAL EXAM: VITAL SIGNS: Reviewed GENERAL: Well-developed in no acute distress. HEENT: No sclera icterus. Extraocular movements grossly intact. Moist buccal mucosa. Head is atraumatic, normocephalic. Hears conversational speech. No nasal drainage. NECK: Supple without lymphadenopathy. CHEST: Non-labored respirations and equal bilateral excursions. CARDIOVASCULAR: Palpable 2+ radial pulses. ABDOMEN: Soft. Nondistended. Tenderness with palpation of the lower mid suprapubic area and left lower quadrant MUSCULOSKELETAL: No clubbing or cyanosis. NEUROLOGIC: No focal or lateralizing signs. Cranial nerves II through XII grossly intact. PSYCH: Appropriate affect. Alert and oriented to person, place and time. SKIN: Well perfused. Good skin turgor. ASSESSMENT: 1. Gastroenteritis 2. Atypical chest pain 3. 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 And she'll consider to have it done outpatient if she continues to have symptoms. -EGD will be canceled for today. -Continue cardiac workup -Recommend the patient follows up with her PCP -No surgical intervention planned -Continue supportive care -Surgical service will sign off. Please call with any questions or concerns. Physician Manager Nicu note has been reviewed by physician. Signing provider agrees with the documented findings, assessment, and plan of care. As above. No acute surgical intervention. May follow up as outpatient for endoscopy for continued symptoms. Objective - Vital Signs Vital signs: Vital Signs Temp 98.7 F 09/01/22 08:00 Pulse 79 09/01/22 08:00 Resp 18 09/01/22 08:00 BP 101/70 09/01/22 08:00 Pulse Ox 100 09/01/22 09:13 FiO2 Intake & Output 08/31/22 09/01/22 09/01/22 18:59 06:59 18:59 Intake Total 120 Balance 120 Weight 63.503 kg Intake: Oral 120 Other: Voiding Method Toilet Toilet # Voids 1 1 - Labs CBC & Chem 7: 08/31/22 07:46 09/01/22 11:44 Labs: Abnormal Lab Results - Last 24 Hours (Table) 08/31/22 Range/Units 11:56 Ur Specific [place] >1.050 H (1.001-1.035) Urine Protein Trace H (Negative) Urine Ketones 2+ H (Negative) Urine Blood Trace H (Negative) Urine Mucus Rare H (None) /hpf
[2022-09-01 12:55] LABS: African American GFR (CKD) >90 (>60 ml/min/1.73 sqM); Anion Gap 1 mmol/L; Blood Urea Nitrogen 4 mg/dL (7-17); Calcium 7.5 mg/dL (8.4-10.2); Carbon Dioxide 24 mmol/L (22-30); Chloride 112 mmol/L (98-107); Glucose 84 mg/dL (74-99); Magnesium 1.5 mg/dL (1.6-2.3); Non-African American GFR(CKD) >90 (>60 ml/min/1.73 sqM); Potassium 3.6 mmol/L (3.5-5.1); Sodium 137 mmol/L (137-145)
--- NOTE | 2022-09-01 13:19 | P.CRDCN ---
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 Patient gives history that she was exposed to her grandchildren who had recent vomiting and diarrhea. She developed chest pain in the center of her chest that went through to her upper back with numbness in both arms. She tried to walk it off but did not improve by the next afternoon she also developed vomiting and diarrhea. At 5 AM the next morning she thought it was gas but it continued to worsen. She states she collapsed and saw spots and felt like she was being crushed. She states the pain is a little bit tight today she's never had this type of pain before. It is not associated with food intake. It may have been improved with Protonix. She denies any nausea or vomiting at this time. EKG normal sinus rhythm 2 Chest x-ray no acute process CTA of the chest revealed no PE. No acute thoracic process. Left paraesophageal lesion CT of the abdomen and pelvis revealed enteritis No home cardiac medications Review Of Systems: At the time of my evaluation: Constitutional: No fever, no chills. No weakness, fatigue or lethargy. EENT: No headache. No dizziness. Lungs: No shortness of breath, cough, no sputum production. No wheezing. Cardiovascular: Mild chest pain, no lower extremity edema. No palpitations. No paroxysmal nocturnal dyspnea. No orthopnea. No lightheadedness or dizziness. No syncopal episodes. Abdominal: No abdominal pain. No nausea, vomiting. No diarrhea. No constipation. No bloody or tarry stools. Genitourinary: No dysuria.. No urinary retention. Musculoskeletal: No myalgias. No muscle weakness, no frequent falls. No back pain. No neck pain. Integumentary: No wounds. No rash. No unusual bruising. Neurologic: No aphasia. No facial droop. No change in mentation. No head injury. No headache. Psychiatric: No depression. No anxiety. Endocrine: No abnormal blood sugars. Physical examination: Gen: This is a 42-year-old female resting in bed and appears to be in no acute distress VS: reviewed HEENT: Head is atraumatic, normocephalic. Pupils equal, round. Sclerae is anicteric. NECK: Supple. No JVD. No lymphadenopathy. No thyromegaly. LUNGS: Clear to auscultation. No wheezes or rhonchi. No intercostal retractions. HEART: Regular rate and rhythm. No murmur. ABDOMEN: Soft. No tenderness. EXTREMITIES: No pedal edema. No calf tenderness. NEUROLOGICAL: Patient is awake, alert and oriented x3. Cranial nerves 2 through 12 are grossly intact. Assessment: Chest pain, noncardiac, acute coronary syndrome ruled out Enteritis Plan: Obtain 2-D echocardiogram and Doppler study to assess cardiac structure and function If echocardiogram is within normal limits, patient is cleared from cardiology for discharge home Patient may follow-up in the office for outpatient stress testing Thank you kindly for this consultation. Nurse practitioner note has been reviewed, I agree with documented findings and plan of care. Patient was seen and examined. Past Medical History Past Medical History: No Reported History History of Any Multi-Drug Resistant Organisms: None Reported Past Surgical History: Section, Tubal Ligation, Uterine Ablation Additional Past Surgical History / Comment(s): abdominalplasty Past Anesthesia/Blood Transfusion Reactions: No Reported Reaction Past Psychological History: No Psychological Hx Reported Smoking Status: Former smoker Past Alcohol Use History: Rare Past Drug Use History: None Reported Medications and Allergies Home Medications Medication Instructions Recorded Confirmed Type ALPRAZolam [Xanax] 0.25 mg PO DIRECTED PRN 08/31/22 08/31/22 History Oxybutynin Xl [Ditropan XL] 10 mg PO DAILY 08/31/22 08/31/22 History methocarbamoL [Robaxin] 500 mg PO BID PRN 08/31/22 08/31/22 History Aspirin 81 mg PO DAILY #30 tab 09/01/22 Rx Allergies Allergy/AdvReac Type Severity Reaction Status Date / Time No Known Allergies Allergy Verified 08/31/22 10:21 Physical Exam Vitals: Vital Signs Temp Pulse Pulse Resp BP BP BP 09/01/22 04:00 98 F 79 18 82/52 95/62 09/01/22 02:00 93 18 09/01/22 00:00 99.7 F H 93 18 95/61 08/31/22 20:00 97.7 F 93 18 93/59 08/31/22 17:26 98.1 F 77 16 107/68 08/31/22 17:00 88 19 97/64 08/31/22 16:30 97.7 F 66 17 97/69 08/31/22 15:00 85 15 100/62 08/31/22 14:30 93 16 100/62 08/31/22 14:00 79 16 90/54 08/31/22 13:30 82 17 93/49 08/31/22 13:00 76 15 94/65 08/31/22 12:30 81 15 89/62 08/31/22 12:00 73 17 93/62 08/31/22 11:30 78 12 88/56 08/31/22 11:13 67 15 88/56 08/31/22 09:38 79 18 87/54 08/31/22 09:30 80 18 85/55 08/31/22 09:00 65 19 84/58 08/31/22 08:30 74 18 96/58 08/31/22 08:00 93 21 94/61 08/31/22 07:36 96 16 94/71 Pulse Ox 09/01/22 04:00 99 09/01/22 02:00 09/01/22 00:00 97 08/31/22 20:00 98 08/31/22 17:26 100 08/31/22 17:00 100 08/31/22 16:30 100 08/31/22 15:00 100 08/31/22 14:30 99 08/31/22 14:00 100 08/31/22 13:30 100 08/31/22 13:00 99 08/31/22 12:30 99 08/31/22 12:00 98 08/31/22 11:30 100 08/31/22 11:13 99 08/31/22 09:38 99 08/31/22 09:30 100 08/31/22 09:00 100 08/31/22 08:30 99 08/31/22 08:00 100 08/31/22 07:36 100 Intake and Output 08/31/22 09/01/22 09/01/22 22:59 06:59 14:59 Intake Total 120 Balance 120 Intake: Oral 120 Other: Voiding Method Toilet Toilet # Voids 1 1 Results 08/31/22 07:46 09/01/22 11:44 Cardiac Enzymes 08/31/22 08/31/22 08/31/22 Range/Units 07:46 07:46 11:04 AST 25 (14-36) U/L Troponin I <0.012 <0.012 (0.000-0.034) ng/mL 08/31/22 Range/Units 14:31 AST (14-36) U/L Troponin I <0.012 (0.000-0.034) ng/mL Coagulation 08/31/22 Range/Units 07:46 PT 10.5 (9.0-12.0) sec APTT 25.6 (22.0-30.0) sec CBC 08/31/22 Range/Units 07:46 WBC 6.3 (3.8-10.6) k/uL RBC 4.86 (3.80-5.40) m/uL Hgb 13.9 (11.4-16.0) gm/dL Hct 40.8 (34.0-46.0) % Plt Count 285 (150-450) k/uL Comprehensive Metabolic Panel 08/31/22 Range/Units 07:46 Sodium 137 (137-145) mmol/L Potassium 3.8 (3.5-5.1) mmol/L Chloride 105 (98-107) mmol/L Carbon Dioxide 26 (22-30) mmol/L BUN 14 (7-17) mg/dL Creatinine 0.69 (0.52-1.04) mg/dL Glucose 108 H (74-99) mg/dL Calcium 8.8 (8.4-10.2) mg/dL AST 25 (14-36) U/L ALT 18 (4-34) U/L Alkaline Phosphatase 50 (38-126) U/L Total Protein 7.2 (6.3-8.2) g/dL Albumin 4.3 (3.5-5.0) g/dL Current Medications Generic Name Dose Route Start Last Admin Trade Name Freq PRN Reason Stop Dose Admin Acetaminophen 650 mg 08/31/22 22:46 08/31/22 23:01 Acetaminophen Tab 325 Mg Tab PO 650 mg Q6HR PRN Administration Fever and/ or Pain Hydrocodone Bitart/Acetaminophen 1 each 08/31/22 13:40 08/31/22 13:45 Hydrocodone/Apap 5-325mg 1 Each Tab PO 1 each Q6HR PRN Administration Pain Amoxicillin/Clavulanate Potassium 1 each 08/31/22 23:00 08/31/22 23:06 Amoxic-Pot Clav 875-125mg 1 Each Tab PO 1 each Q12HR FAMILIA Administration Protocol Aspirin 325 mg 09/01/22 09:00 Aspirin 325 Mg Tab PO DAILY FAMILIA Heparin Sodium (Porcine) 5,000 unit 09/01/22 09:00 Heparin Sodium,Porcine/Pf 5,000 Unit/0.5 Ml Syringe SQ Q12HR FAMILIA Sodium Chloride 1,000 mls @ 130 mls/hr 08/31/22 12:00 09/01/22 06:01 Saline 0.9% IV 130 mls/hr .Q7H42M FAMILIA Administration Sodium Chloride 1,000 mls @ 999 mls/hr 09/01/22 06:47 Saline 0.9% IV 09/01/22 07:47 .Q1H1M ONE Iopamidol 30 ml 08/31/22 14:51 Iopamidol Contrast (Oral Use) Vial PO 09/01/22 14:[address] Scan Pantoprazole Sodium 40 mg 08/31/22 21:00 08/31/22 20:45 Pantoprazole 40 Mg/10 Ml Vial IVP 40 mg BID FAMILIA Administration Intake and Output 08/31/22 09/01/22 09/01/22 22:59 06:59 14:59 Intake Total 120 Balance 120 Intake: Oral 120 Other: Voiding Method Toilet Toilet # Voids 1 1 08/31/22 07:46 08/31/22 07:46
[2022-09-01 15:18] VITALS: PULSE 82
--- NOTE | 2022-09-01 17:54 | P.DS ---
Providers Date of admission: 08/31/22 10:21 Expected date of discharge: 09/01/22 Attending physician: Tommy Hernandez Consults: 08/31/22 09:57 Consult Physician Urgent Consulting Provider: Baldo Santiago Consult Reason/Comments: chest pain Do you want consulting provider notified?: Yes Primary care physician: Az[facility] Hospital Course: This is a pleasant 42 years old female with no significant past medical history Presents because of chest pain this morning was about 10/10, central going to the back, currently improved 2/10, felt like dull pain. associated with all numbness feeling clammy Patient denies coughing or dyspnea No vomiting diarrhea or recent abdominal pain however patient was complaining of from lower abdominal pain and tenderness since last May. She feels very fatigued, her legs are restless. She denies any urinary symptoms like dysuria urgency or change in frequency, she feels dizzy and lightheadedness but no headache weakness or numbness. She feels generally weak. She denies smoking alcohol and illicit drugs Usually her systolic blood pressure is around 100, currently 85-90. Patient says that last May she has History of removal of fallopian tubes for sterilization purposes. Ovaries and part of the transverse left. Vitals are stable. Blood pressure on the low side, 85/55 and 88/56 Patient has unremarkable CBC, INR, BMP and liver enzymes. Troponin is negative. elevated 0.92. Magnesium level I.5. Influenza and covid virsus are undetected EKG showing normal sinus rhythm at [address]-T changes CTA of the chest: No PE, left paraesophageal digital 1.8 cm round lesion. The presents of benign a process such as a duplication cyst. Consider follow-up exam in 6 months to assess She was started on aspirin 09/01/2022: I assumed care of the patient today. Patient stated that she had presented with getting nausea vomiting. Increasing abdominal cramping and loose stools. Her 2 grandchildren were sick the previous day. Symptoms like. She improved. She does have chronic suprapubic discomfort. Feels well today. Patient does take Xanax for anxiety. Does not sleep too well. Had a lengthy discussion about lifestyle changes and mindfulness. Seen by kenya Garces. There do not outpatient stress test. Patient told to follow-up with GI outpatient. Relevant family doctor. Questions answered. Patient felt of acute ileitis likely viral self-limiting. Discussion and discharge planning more than 35 minutes Past Medical History Past Medical History: No Reported History History of Any Multi-Drug Resistant Organisms: None Reported Past Surgical History: Section, Tubal Ligation, Uterine Ablation Past Psychological History: No Psychological Hx Reported Smoking Status: Former smoker Past Alcohol Use History: Rare Past Drug Use History: None Reported On exam: 98.7, 79, 16, 101/70, 100% room air Gen. appearance: Propped up in bed awake slightly anxious Abdomen: Minimal suprapubic tenderness. No guarding rigidity. Psychiatry: Mild anxiety INVESTIGATIONS, reviewed in the clinical context: White count 6.3 hemoglobin 13.9 platelets 25 lymphocytes 0.4 sodium 137 potassium 3.6 creatinine 0.5 Influenza type A/diabetes/RSV/COVID-19: Not detected Urine hCG: Not detected EKG tracing personally reviewed by me-normal sinus rhythm 2-D echocardiogram: EF 50-55%. Chest pain, rule out cardiac causes, CTA was negative for PE Hypotension Suprapubic pain and tenderness, chronic as per patient left paraesophageal digital 1.8 cm round lesion recommended by radiologist to reassess in 6 months History of removal of fallopian tubes CT abdomen and pelvis: Small bowel wall thickening possible enteritis Chest CTA: Negative for PE. Left paraesophageal 1.8 cm round lesion. Represent a benign process. Follow-up outpatient. Assessment and plan: -Anterior chest wall pain. Rule out cardiac cause. Seen by cardiology. Baby aspirin. Outpatient stress test. -Acute enteritis likely viral. Self-limiting.: Better -Left paraesophageal 1.8 cm round lesion. Possibly benign. Follow-up with PCP. copy of dictation being sent to him -Anxiety not otherwise specified Takes Xanax when necessary. Mindfulness discussed. -Chronic insomnia, from heavy work schedule . Disposition: Home Plan - Discharge Summary Discharge Rx Participant: No New Discharge Prescriptions: New Aspirin 81 mg PO DAILY #30 tab Continue methocarbamoL [Robaxin] 500 mg PO BID PRN PRN Reason: Pain ALPRAZolam [Xanax] 0.25 mg PO DIRECTED PRN PRN Reason: Anxiety Oxybutynin Xl [Ditropan XL] 10 mg PO DAILY Discharge Medication List ALPRAZolam [Xanax] 0.25 mg PO DIRECTED PRN 08/31/22 [History] Oxybutynin Xl [Ditropan XL] 10 mg PO DAILY 08/31/22 [History] methocarbamoL [Robaxin] 500 mg PO BID PRN 08/31/22 [History] Aspirin 81 mg PO DAILY #30 tab 09/01/22 [Rx] Follow up Appointment(s)/Referral(s): Azar Kenyon DO [Primary Care Provider] - 09/15/22 11:15 am Xavier Mckeon DO [STAFF PHYSICIAN] - 1 Week (Cardiology....The office will jamarcus you with appointment date and time.) Belen Camara MD [STAFF PHYSICIAN] - 1 Week (Gastroenterology....will need out patient EGD.) Patient Instructions/Handouts: Chest Pain (DC), Enteritis (DC) Discharge Disposition: HOME SELF-CARE
[2022-09-01 18:36] LABS: Chol/HDL Ratio 2.51 Ratio; LDL Cholesterol,Calculated 52.6 mg/dL (0.0-131.0); VLDL Calculation 18.38 mg/dL (5.00-40.00)
== END 2022-09-01 15:22 | disposition home or self-care (01) | DRG 392 ==
LOC: EC 06:50 → 3SCARD 10:21
PROVIDERS: ADMIT Hospitalist; ATTEND Hospitalist
DX: A08.4 Viral intestinal infection, unspecified (principal); E83.42 Hypomagnesemia; Z20.822 Contact with and (suspected) exposure to COVID-19; F51.04 Psychophysiologic insomnia; F41.9 Anxiety disorder, unspecified; R07.89 Other chest pain; D13.0 Benign neoplasm of esophagus; I95.9 Hypotension, unspecified; N32.81 Overactive bladder; Z79.82 Long term (current) use of aspirin; Z98.891 History of uterine scar from previous surgery; Z90.79 Acquired absence of other genital organ(s); G89.29 Other chronic pain; R10.9 Unspecified abdominal pain; Z87.891 Personal history of nicotine dependence
CPT/HCPCS: 36415; 71046; 71275; 74176; 80048; 80053; 80061; 81001; 83690; 83735; 84145; 84484; 84703; 85025; 85379; 85610; 85730; 87636; 93005; 93306; 94760; 96361; 96374; 99285